=== PATIENT | female | born 1940 | race Caucasian/White ===

== ENCOUNTER → 2016-08-09 | Outpatient (CLI) | payer OTHER | END | disposition home or self-care (01) | LOC: C.LABBC 10:45 | PROVIDERS: ATTEND Physician Assistant | DX: R05 Cough (principal) ==

== ENCOUNTER → 2016-09-09 | Outpatient (CLI) | payer OTHER ==
[2016-09-09 13:35] LABS: URINE APPEARANCE TURBID (CLEAR); URINE BILIRUBIN NEG (NEG); URINE COLOR YELLOW; URINE NITRITE POS (NEG); URINE PH 5.5 (4.5-7.5); URINE SPECIFIC GRAVITY 1.015 (1.000-1.030); UROBILINOGEN NEG (NEG)
[2016-09-09 13:45] LABS: MANUAL MICROSCOPIC REQUIRED? NO; REVIEW REQ? NO
== END | disposition home or self-care (01) ==
LOC: C.LABBC 12:16
PROVIDERS: ATTEND Internal Medicine
DX: R39.9 Unspecified symptoms and signs involving the genitourinary system (principal)

== ENCOUNTER → 2017-01-09 | Outpatient (CLI) | payer OTHER | END | disposition home or self-care (01) | LOC: C.MAMM 15:33 | PROVIDERS: ATTEND Internal Medicine | DX: M85.88 Other specified disorders of bone density and structure, other site (principal); M85.851 Other specified disorders of bone density and structure, right thigh; M85.852 Other specified disorders of bone density and structure, left thigh ==

== ENCOUNTER → 2017-01-15 | Outpatient (CLI) | payer OTHER ==
[2017-01-15 10:52] LABS: BASO % 0.7 %; BASO ABS # 0.05 K/uL (0-0.2); COMPLETE YES; EOS % 2.7 %; HEMATOCRIT 39.2 % (37-47); IG% 0.7 %; LYMPH % 19.9 %; LYMPH ABS # 1.33 K/uL (1.2-3.4); MEAN CELL VOLUME 89.1 fL (80-100); MEAN CORPUSCULAR HEMOGLOBIN 31.8 pg (25-34); MEAN CORPUSCULAR HGB CONC 35.7 g/dl (32-36); MEAN PLATELET VOLUME 11.4 fL (7.4-10.4); MONO % 9.1 %; NEUT % 66.9 %; PLATELET COUNT 197 K/uL (130-400); WHITE BLOOD COUNT 6.69 K/uL (4.8-10.8)
[2017-01-15 11:44] LABS: ALB/GLOB RATIO 1.1 (0.9-2); ALKALINE PHOSPHATASE 71 U/L (45-117); ALT/SGPT 30 U/L (12-78); BLOOD UREA NITROGEN 15 mg/dl (7-18); BUN/CREATININE RATIO 21.1 (10-20); CALCIUM 9.1 mg/dl (8.5-10.1); CARBON DIOXIDE 25 mmol/L (21-32); CHLORIDE 111 mmol/L (98-107); CHOLESTEROL 174 mg/dl (0-200); CHOLESTEROL/HDL RATIO 2.2; CREATININE 0.71 mg/dl (0.60-1.20); GLUCOSE 98 mg/dl (70-99); HDL CHOLESTEROL 80 mg/dl; LDL CHOLESTEROL CALCULATED 77 mg/dl; SODIUM 142 mmol/L (136-145); TRIGLYCERIDES 84 mg/dl (0-150); VERY LOW DENSITY LIPOPROT CALC 17 mg/dl
[2017-01-15 11:52] LABS: AST/SGOT 16 U/L (15-37)
== END | disposition home or self-care (01) ==
LOC: C.LABBC 08:36
PROVIDERS: ATTEND Internal Medicine
DX: E78.5 Hyperlipidemia, unspecified (principal); E03.9 Hypothyroidism, unspecified; M85.80 Other specified disorders of bone density and structure, unspecified site

== ENCOUNTER → 2017-05-20 | Outpatient (CLI) | payer OTHER | END | disposition home or self-care (01) | LOC: C.PATHSPEC 16:49 | PROVIDERS: ATTEND Plastic Surgery | DX: L72.0 Epidermal cyst (principal) ==

== ENCOUNTER → 2017-05-22 | Outpatient (CLI) | payer OTHER | END | disposition home or self-care (01) | LOC: C.LABBC 13:05 | PROVIDERS: ATTEND Internal Medicine | DX: R39.9 Unspecified symptoms and signs involving the genitourinary system (principal); A49.8 Other bacterial infections of unspecified site ==

== ENCOUNTER → 2017-06-19 | Outpatient (CLI) | payer OTHER | END | disposition home or self-care (01) | LOC: C.LABBC 14:05 | PROVIDERS: ATTEND Internal Medicine | DX: R39.9 Unspecified symptoms and signs involving the genitourinary system (principal) ==

== ENCOUNTER → 2017-08-12 | Outpatient (CLI) | payer OTHER | END | disposition home or self-care (01) | LOC: C.LABBC 13:47 | PROVIDERS: ATTEND Nurse Practitioner Adult Health | DX: R39.9 Unspecified symptoms and signs involving the genitourinary system (principal) ==

== ENCOUNTER 2023-02-13 08:38 | Inpatient (IN) ==
[2023-02-13 10:02] LABS: Basophils # (auto) 0.06 K/uL (0.00-0.20); Basophils % (auto) 0.7 %; Eosinophils # (auto) 0.04 K/uL (0.00-0.50); Eosinophils % (auto) 0.5 %; Hematocrit (blood only) 43.9 % (37.0-47.0); Hemoglobin 15.4 g/dl (12.0-16.0); Immature Granulocytes # (auto) 0.05 K/uL (0.01-0.20); Immature Granulocytes % (auto) 0.6 %; Lymphocytes # (auto) 0.95 K/uL (1.20-3.40); Lymphocytes % (auto) 11.6 %; Mean Corpuscular Hemoglobin 31.5 pg (25.0-34.0); Mean Corpuscular Hgb Conc 35.1 g/dL (32.0-36.0); Mean Corpuscular Volume 89.8 fL (80.0-100.0); Monocytes # (auto) 0.57 K/uL (0.11-0.59); Neutrophils # (auto) 6.52 K/uL (1.40-6.50); Neutrophils % (auto) 79.6 %; Platelet Count 295 K/uL (130-400); RDW Coefficient of Variation 11.8 % (11.5-14.5); RDW Standard Deviation 38.2 fL (36.4-46.3); Red Blood Count 4.89 M/uL (4.20-5.40); White Blood Count 8.19 K/ul (4.8-10.8)
[2023-02-13 10:07] LABS: Albumin Globulin Ratio 1.6 (0.9-2); Albumin Level 4.7 gm/dl (3.4-5.0); BUN Creatinine Ratio 17.6 (10-20); Bilirubin,Total 0.7 mg/dl (0.2-1.0); Calcium 10.3 mg/dl (8.6-10.3); Creatinine Clr Calc Pharmacy 41.7 ml/min; Est GFR (Non-African American) 64.7 ml/min; Globulin 2.9 gm/dl (2.5-4.0); Magnesium 2.2 mg/dl (1.7-2.4); Potassium 3.8 mmol/L (3.5-5.1); Total Protein 7.6 gm/dl (6.0-8.3)
[2023-02-13 10:13] LABS: Troponin I High Sensitivity 4.8 pg/ml (0-14)
[2023-02-13 10:22] LABS: Thyroid Stimulating Hormone 1.362 uIu/ml (0.300-4.500)
[2023-02-13 10:29] LABS: Partial Thromboplastin Ratio 1.1; Partial Thromboplastin Time 30.5 Seconds (21.0-31.0); Prothrombin Time 10.6 Seconds (9.0-12.0)
--- NOTE | 2023-02-13 10:37 | CT Scan Report ---
CT head/brain wo con CLINICAL HISTORY: 82 years-old Female with AMS. Acutely altered mental status TECHNIQUE: Multiple axial CT images of the head were obtained without contrast. A dose lowering tech nique was utilized adhering to the principles of ALARA. CT DOSE: 547.75 mGy.cm COMPARISON: Brain MRI 12/31/2022 FINDINGS: No acute intracranial hemorrhage, midline shift, intracranial mass, hydrocephalus, territorial ischem ia or abnormal extra-axial collection. Involutional changes with white matter hypodensities suggestiv e of chronic microvascular ischemic disease. Calcifications of the falx cerebri. The calvarium is intact. Prior bilateral lens repair. The paranasal sinuses, mastoid air cells, and m iddle ear cavities are clear. IMPRESSION: 1. No acute intracranial abnormality. 2. Involutional changes with chronic microvascular ischemic disease. ACT 112: Negative or not required by law. The above report was generated using voice recognition software. It may contain grammatical, syntax o r spelling errors. Electronically signed by: Erasmo Calzada M.D. 02/13/2023 10:36 AM
[2023-02-13] MEDS ORDERED: LABETALOL HCL IV 5 MG/ML 20ML IV STA (10:54)
[2023-02-13 10:59] LABS: Adenovirus PCR Not Detected (NotDetected); Bordetella parapertussis PCR Not Detected (NotDetected); Bordetella pertussis PCR Not Detected (NotDetected); Chlamydia pneumoniae PCR Not Detected (NotDetected); Coronavirus 229E PCR Not Detected (NotDetected); Coronavirus CoV-2 (COVID19)PCR Not Detected (NotDetected); Coronavirus HKU1 PCR Not Detected (NotDetected); Coronavirus NL63 PCR Not Detected (NotDetected); Coronavirus OC43PCR Not Detected (NotDetected); Human Metapneumovirus PCR Not Detected (NotDetected); Influenza A PCR Not Detected (NotDetected); Influenza B PCR Not Detected (NotDetected); Mycoplasma pneumoniae PCR Not Detected (NotDetected); Parainfluenza Virus 1 PCR Not Detected (NotDetected); Parainfluenza Virus 2 PCR Not Detected (NotDetected); Parainfluenza Virus 3 PCR Not Detected (NotDetected); Parainfluenza Virus 4 PCR Not Detected (NotDetected); Respiratory Syncytial VirusPCR Not Detected (NotDetected); Rhinovirus/Enterovirus PCR Not Detected (NotDetected)
--- NOTE | 2023-02-13 11:59 | Emergency Department Note ---
Impression & Plan Acute alteration in mental status, Hypertension ED Provider Note CHIEF COMPLAINT: AMS and HTN HISTORY OF PRESENT ILLNESS: This 82 yo female patient presents to the emergency department with c/o 3 episodes of AMS. Pt first presented with an episode of confusion. states he asked her a question and pt spoke "gibberish" he then had her rest. Pt cleared. A few hours later the patient had a similar episode, just stared off into space, not answering a question her had asked. Pt is noted to have HTN, stated she was weaned off of her BP meds over the summer. She stopped completely in October as she was not feeling well on amlodipine and metoprolol. REVIEW OF SYSTEMS: A review of systems was performed with positives and pertinent negatives listed in the history of present illness. 10 systems were reviewed and are otherwise negative. ALLERGIES: see below MEDICATIONS: see below PMH: see below SOCIAL HISTORY: see below DDx: CVA, TIA, seizure, HTN urgency, ACS, sepsis, ICM, ICH among others. PHYSICAL EXAM: Vital signs reviewed. General: Well-appearing 82 year old female, in no significant distress. HEENT: No scleral icterus, PERRLA, neck supple. Atraumatic. Cardiovascular: Regular rate and rhythm, no extra sounds. Pulmonary: Clear to auscultation bilaterally, normal work of breathing. Abdomen: Soft, nontender, nondistended, positive bowel sounds. Musculoskeletal: Atraumatic, no peripheral edema. Neurologic: Patient awake alert and oriented x 3, speech is clear. Intact [id number], negative pronator drift. Skin: Warm, dry, no rash EXTERNAL medical record review: Previous EKG dated March 03, 2018, PCP note dated 01/20/23, Rx fill history EMERGENCY DEPARTMENT COURSE/MDM: This pt was evaluated and appeared to be in no significant distress. Patient was asymptomatic at the time of my evaluation. CT imaging of the head was performed and is negative for acute abnormality. EKG reveals a normal sinus rhythm. Laboratory work is fairly reassuring. Patient's blood pressure was noted to be elevated and she was treated with 10 mg of IV labetalol. It is quite possible that the patient has suffered from TIA vs seizure vs hypertensive urgency. Patient's case was discussed with the hospitalist service who will evaluate the patient for admission and further management. Patient and were made aware of the plan and agreed. MONITORING: An order for cardiac monitoring was placed and the patient is noted to be in a normal sinus rhythm at 65 beats per minute. RADIOLOGY: CT head is negative for intracranial abnl to my review. Otherwise defer to radiology's over read EKG: To my interpretation reveals a normal sinus rhythm at 95 bpm. Low voltage QRS, Nonspecific ST and T wave abnormality. QTc is 424. When compared to previous dated March 03, 2018, PVCs are no longer present. DISPOSITION: Admission Past Med/Surg History Medical History Mild cognitive impairment Displaced fracture of neck of right fifth metacarpal bone Contusion of right knee Arthritis, multiple joint involvement Chronic constipation Hyperlipidemia Nonrheumatic aortic (valve) insufficiency Osteopenia after menopause Hypertension Multifocal PVCs Hypercholesterolemia Hypothyroid Surgical History Hx of tonsillectomy H/O vaginal hysterectomy Family History Son Colorectal cancer Denies family history of Ovarian cancer Prostate cancer Diabetes Myocardial infarction Breast cancer Lung cancer Stroke Social History Smoking Status: Never smoker Tobacco Type: Cigarettes Age Started Using Tobacco: 22; Age Quit Using Tobacco: 52; packs per day: 0.5; Cigarettes Per Day: 6-10; Second Hand Exposure: No; Do You Dip or Chew Tobacco: No; Hx Alcohol Use: No Hx Substance Use: No Preferred Language: Belgian Communication Ability: Effective Visual Impairment: Limited Hearing Ability: Normal Door Builder Required: No Beliefs That Will Affect Care: None marital status: Current Living Situation: Spouse current occupational status: retired How many Children do You have: 3 Feels Safe at Home: Yes Childhood Exposure to Second-Hand Smoke: Yes caffeine: No Dental Care, Regularly: No Physical Activity Frequency: Daily Seatbelt Use: always Sunscreen Use: Yes Assistive Devices: None Allergies Allergies Allergy/AdvReac Type Severity Reaction Status Date / Time sertraline AdvReac Mild jitteriness, Verified 01/21/23 10:01 palpitations Home Meds Home Medications Medication Instructions Recorded Confirmed cholecalciferol (vitamin D3) 25 1,000 unit PO QAM 03/03/18 02/17/23 mcg (1,000 unit) tablet (Vitamin D3) aspirin 81 mg tablet,delayed 81 mg PO DAILY 01/04/19 02/17/23 release cyanocobalamin (vitamin B-12) 1,000 mcg PO DAILY 01/04/19 02/17/23 1,000 mcg tablet (Vitamin B-12) lactobacillus combination no.9 4 4,000 mmu cells PO DAILY 01/18/20 02/17/23 billion cell capsule (Adult 50 Plus Probiotic) famotidine 20 mg tablet (Pepcid) 20 mg PO DAILY 12/11/22 02/17/23 Previous Rx's Medication Instructions Recorded levothyroxine 75 mcg tablet 75 mcg PO DAILY #90 tabs 03/13/22 trazodone 50 mg tablet 75 mg (1.5 x 50 mg) PO HS #60 tabs 01/07/23 levetiracetam 500 mg tablet 500 mg PO BID 30 days #60 tabs 02/15/23 Results & Data (ED) Vital Signs Vital Signs - 24 hr 02/13/23 08:39 02/13/23 08:51 02/13/23 09:04 Temperature 36.9 C Temperature Source Oral Pulse Rate 98 H 94 H Pulse Rate [Right Finger] 91 H Pulse Rhythm Regular Pulse Rhythm [Right Finger] Regular Pulse Strength Normal Pulse Strength [Right Finger] Normal Respiratory Rate 18 18 Respiratory Effort / Characteristics Non-Labored Non-Labored Respiratory Depth Normal Normal Respiratory Pattern Regular Regular Blood Pressure 185/79 H Blood Pressure [Right Arm] 177/126 H Blood Pressure Mean 114 Blood Pressure Mean [Right Arm] 143 Blood Pressure Position Sitting Blood Pressure Position [Right Arm] Lying Pulse Oximetry 94 95 Oxygen Delivery Method Room Air Room Air Sepsis Recent Fever Within 48 Hours No Sepsis New/Unexplained Change in Mental Status No Sepsis Action Taken by Nursing No Action Required 02/13/23 11:02 02/13/23 11:35 02/13/23 12:13 Temperature Temperature Source Pulse Rate 80 Pulse Rate [Right Finger] 74 75 Pulse Rhythm Pulse Rhythm [Right Finger] Regular Regular Pulse Strength Pulse Strength [Right Finger] Normal Normal Respiratory Rate 18 16 Respiratory Effort / Characteristics Non-Labored Non-Labored Respiratory Depth Normal Normal Respiratory Pattern Regular Regular Blood Pressure 160/83 H Blood Pressure [Right Arm] 166/84 H 150/80 H Blood Pressure Mean Blood Pressure Mean [Right Arm] 111 103 Blood Pressure Position Blood Pressure Position [Right Arm] Lying Lying Pulse Oximetry 94 96 Oxygen Delivery Method Room Air Room Air Sepsis Recent Fever Within 48 Hours Sepsis New/Unexplained Change in Mental Status Sepsis Action Taken by Nursing 02/13/23 12:17 02/13/23 13:42 02/13/23 18:16 Temperature Temperature Source Pulse Rate 75 72 Pulse Rate [Right Finger] Pulse Rhythm Pulse Rhythm [Right Finger] Pulse Strength Pulse Strength [Right Finger] Respiratory Rate Respiratory Effort / Characteristics Respiratory Depth Respiratory Pattern Blood Pressure 167/85 H Blood Pressure [Right Arm] Blood Pressure Mean Blood Pressure Mean [Right Arm] Blood Pressure Position Blood Pressure Position [Right Arm] Pulse Oximetry Oxygen Delivery Method Room Air Sepsis Recent Fever Within 48 Hours Sepsis New/Unexplained Change in Mental Status Sepsis Action Taken by [facility] Medications Current Medication List: was personally reviewed by me Laboratory Data Attestation: I reviewed the patient's lab results. 02/15/23 05:56 02/15/23 05:56 Lab Results 02/13/23 02/13/23 02/13/23 Range/Units 08:53 09:57 13:51 WBC 8.19 (4.8-10.8) K/ul RBC 4.89 (4.20-5.40) M/uL Hgb 15.4 (12.0-16.0) g/dl Hct 43.9 (37.0-47.0) % MCV 89.8 (80.0-100.0) fL MCH 31.5 (25.0-34.0) pg MCHC 35.1 (32.0-36.0) g/dL RDW Std Deviation 38.2 (36.4-46.3) fL RDW Coeff of Nely 11.8 (11.5-14.5) % Plt Count 295 (130-400) K/uL MPV 10.0 (9.4-12.4) fL Immature Gran % (Auto) 0.6 % Neut % (Auto) 79.6 % Lymph % (Auto) 11.6 % [place] % (Auto) 7.0 % Eos % (Auto) 0.5 % Baso % (Auto) 0.7 % Neut # (Auto) 6.52 H (1.40-6.50) K/uL Lymph # (Auto) 0.95 L (1.20-3.40) K/uL [place] # (Auto) 0.57 (0.11-0.59) K/uL Eos # (Auto) 0.04 (0.00-0.50) K/uL Baso # (Auto) 0.06 (0.00-0.20) K/uL Immature Gran # (Auto) 0.05 (0.01-0.20) K/uL PT 10.6 (9.0-12.0) Seconds INR 1.0 (0.9-1.1) APTT 30.5 (21.0-31.0) Seconds PTT Ratio 1.1 Sodium 139 (136-145) mmol/L Potassium 3.8 (3.5-5.1) mmol/L Chloride 107 (98-107) mmol/L Carbon Dioxide 23 (21-32) mmol/L Anion Gap 9 (3-11) BUN 15 (6-23) mg/dl Creatinine 0.85 (0.6-1.2) mg/dl Est Cr Clr Drug Dosing 41.7 ml/min Est GFR ( Amer) 75.0 ml/min Est GFR (Non-Af Amer) 64.7 ml/min BUN/Creatinine Ratio 17.6 (10-20) Glucose 117 H (70-99(Fasting)) mg/dl Calcium 10.3 (8.6-10.3) mg/dl Magnesium 2.2 (1.7-2.4) mg/dl Total Bilirubin 0.7 (0.2-1.0) mg/dl AST 19 (13-39) U/L ALT 33 (7-52) U/L Alkaline Phosphatase 62 (34-104) U/L Troponin I High Sens 4.8 (0-14) pg/ml Total Protein 7.6 (6.0-8.3) gm/dl Albumin 4.7 (3.4-5.0) gm/dl Globulin 2.9 (2.5-4.0) gm/dl Albumin/Globulin Ratio 1.6 (0.9-2) Vitamin B12 Cancelled TSH 1.362 (0.300-4.500) uIu/ml Urine Color Yellow Urine Appearance Clear (Clear) Urine pH 8.0 H (4.5-7.5) Ur Specific [place] 1.009 (1.000-1.030) Urine Protein Negative (Negative) Urine Glucose (UA) Negative (Negative) Urine Ketones Negative (Negative) Urine Blood Negative (Negative) Urine Nitrite Negative (Negative) Urine Bilirubin Negative (Negative) Urine Urobilinogen Negative (Negative) Ur Leukocyte Esterase Negative (Negative) POC Ur Test Adenovirus (PCR) Not Detected (NotDetected) B. pertussis DNA (PCR) Not Detected (NotDetected) B.parapertussis DNA PCR Not Detected (NotDetected) C. pneumoniae DNA (PCR) Not Detected (NotDetected) Coronavirus OC43 (PCR) Not Detected (NotDetected) Coronavirus HKU1 (PCR) Not Detected (NotDetected) Coronavirus 229E (PCR) Not Detected (NotDetected) SARS-CoV-2 (PCR) Not Detected (NotDetected) Coronavirus NL63 (PCR) Not Detected (NotDetected) Human Metapneumovir PCR Not Detected (NotDetected) Influenza Type A (PCR) Not Detected (NotDetected) Influenza Type B (PCR) Not Detected (NotDetected) M. pneumoniae (PCR) Not Detected (NotDetected) Parainfluenza 1 (PCR) Not Detected (NotDetected) Parainfluenza 2 (PCR) Not Detected (NotDetected) Parainfluenza 3 (PCR) Not Detected (NotDetected) Parainfluenza 4 (PCR) Not Detected (NotDetected) RSV (PCR) Not Detected (NotDetected) Entero/Rhino (PCR) Not Detected (NotDetected) Miscellaneous Test REPORT 02/13/23 Range/Units 15:00 WBC (4.8-10.8) K/ul RBC (4.20-5.40) M/uL Hgb (12.0-16.0) g/dl Hct (37.0-47.0) % MCV (80.0-100.0) fL MCH (25.0-34.0) pg MCHC (32.0-36.0) g/dL RDW Std Deviation (36.4-46.3) fL RDW Coeff of Nely (11.5-14.5) % Plt Count (130-400) K/uL MPV (9.4-12.4) fL Immature Gran % (Auto) % Neut % (Auto) % Lymph % (Auto) % [place] % (Auto) % Eos % (Auto) % Baso % (Auto) % Neut # (Auto) (1.40-6.50) K/uL Lymph # (Auto) (1.20-3.40) K/uL [place] # (Auto) (0.11-0.59) K/uL Eos # (Auto) (0.00-0.50) K/uL Baso # (Auto) (0.00-0.20) K/uL Immature Gran # (Auto) (0.01-0.20) K/uL PT (9.0-12.0) Seconds INR (0.9-1.1) APTT (21.0-31.0) Seconds PTT Ratio Sodium (136-145) mmol/L Potassium (3.5-5.1) mmol/L Chloride (98-107) mmol/L Carbon Dioxide (21-32) mmol/L Anion Gap (3-11) BUN (6-23) mg/dl Creatinine (0.6-1.2) mg/dl Est Cr Clr Drug Dosing ml/min Est GFR ( Amer) ml/min Est GFR (Non-Af Amer) ml/min BUN/Creatinine Ratio (10-20) Glucose (70-99(Fasting)) mg/dl Calcium (8.6-10.3) mg/dl Magnesium (1.7-2.4) mg/dl Total Bilirubin (0.2-1.0) mg/dl AST (13-39) U/L ALT (7-52) U/L Alkaline Phosphatase (34-104) U/L Troponin I High Sens (0-14) pg/ml Total Protein (6.0-8.3) gm/dl Albumin (3.4-5.0) gm/dl Globulin (2.5-4.0) gm/dl Albumin/Globulin Ratio (0.9-2) Vitamin B12 TSH (0.300-4.500) uIu/ml Urine Color Urine Appearance (Clear) Urine pH (4.5-7.5) Ur Specific [place] (1.000-1.030) Urine Protein (Negative) Urine Glucose (UA) (Negative) Urine Ketones (Negative) Urine Blood (Negative) Urine Nitrite (Negative) Urine Bilirubin (Negative) Urine Urobilinogen (Negative) Ur Leukocyte Esterase (Negative) POC Ur Test Cancelled Adenovirus (PCR) (NotDetected) B. pertussis DNA (PCR) (NotDetected) B.parapertussis DNA PCR (NotDetected) C. pneumoniae DNA (PCR) (NotDetected) Coronavirus OC43 (PCR) (NotDetected) Coronavirus HKU1 (PCR) (NotDetected) Coronavirus 229E (PCR) (NotDetected) SARS-CoV-2 (PCR) (NotDetected) Coronavirus NL63 (PCR) (NotDetected) Human Metapneumovir PCR (NotDetected) Influenza Type A (PCR) (NotDetected) Influenza Type B (PCR) (NotDetected) M. pneumoniae (PCR) (NotDetected) Parainfluenza 1 (PCR) (NotDetected) Parainfluenza 2 (PCR) (NotDetected) Parainfluenza 3 (PCR) (NotDetected) Parainfluenza 4 (PCR) (NotDetected) RSV (PCR) (NotDetected) Entero/Rhino (PCR) (NotDetected) Miscellaneous Test Administered Medications Discontinued Medications Aspirin (Aspirin 81 Mg Ectab) 81 mg PO DAILY [facility] Stop: 03/16/23 08:59 Last Admin: 02/15/23 07:41 Dose: 81 mg Documented By: Admin: 02/14/23 07:53 Dose: 81 mg Documented By: FERNIE Famotidine (Famotidine 20 Mg Tab) 20 mg PO DAILY [facility] Stop: 03/16/23 08:59 Last Admin: 02/15/23 07:42 Dose: 20 mg Documented By: Admin: 02/14/23 07:53 Dose: 20 mg Documented By: FERNIE Ioversol (Optiray 320 500ml) 113 ml IV ONCE ONE Stop: 02/14/23 16:05 Last Admin: 02/14/23 16:06 Dose: 113 ml Documented By: PARESH Labetalol HCl (Labetalol Hcl Iv 5 Mg/Ml 20ml) 10 mg IV NOW STA Stop: 02/13/23 10:55 Last Admin: 02/13/23 11:02 Dose: 10 mg Documented By: RUFINO Co-signed By: MAN Levetiracetam (Levetiracetam 500 Mg Tab) 500 mg PO BID [facility] Stop: 03/16/23 13:49 Last Admin: 02/15/23 07:41 Dose: 500 mg Documented By: Admin: 02/14/23 22:07 Dose: 500 mg Documented By: Admin: 02/14/23 15:06 Dose: 500 mg Documented By: FERNIE Levothyroxine Sodium (Levothyroxine Sodium 75 Mcg Tablet) 75 mcg PO DAILYBB KATHRYN Stop: 03/16/23 06:29 Last Admin: 02/15/23 05:51 Dose: 75 mcg Documented By: Admin: 02/14/23 06:23 Dose: 75 mcg Documented By: ANITA Trazodone HCl (Trazodone Hcl 50 Mg Tab) 75 mg PO HS KATHRYN Stop: 03/15/23 20:59 Last Admin: 02/14/23 20:58 Dose: 75 mg Documented By: Admin: 02/13/23 22:09 Dose: 75 mg Documented By: ANITA Imaging Data Radiologist's Impression: Head CT 02/13/23 09:44 CT head/brain wo con CLINICAL HISTORY: 82 years-old Female with AMS. Acutely altered mental status TECHNIQUE: Multiple axial CT images of the head were obtained without contrast. A dose lowering technique was utilized adhering to the principles of ALARA. CT DOSE: 547.75 mGy.cm COMPARISON: Brain MRI 12/31/2022 FINDINGS: No acute intracranial hemorrhage, midline shift, intracranial mass, hydrocephalus, territorial ischemia or abnormal extra-axial collection. Involutional changes with white matter hypodensities suggestive of chronic microvascular ischemic disease. Calcifications of the falx cerebri. The calvarium is intact. Prior bilateral lens repair. The paranasal sinuses, mastoid air cells, and middle ear cavities are clear. IMPRESSION: 1. No acute intracranial abnormality. 2. Involutional changes with chronic microvascular ischemic disease. ACT 112: Negative or not required by law. The above report was generated using voice recognition software. It may contain grammatical, syntax or spelling errors. Electronically signed by: Erasmo Calzada M.D. 02/13/2023 10:36 AM Discharge Plan Visit Data Chief Complaint: Arrhythmia/Palpitations Stated Complaint: HEART RATE ELEVATED, DISORIENTATION, SHAKINESS ED Provider: Chelsea Rosado Discharge Problem: Acute alteration in mental status, Hypertension Patient Disposition: Admitted As Inpatient Condition: Good Discharge Instructions Interventions: ED Discharge Assessment Last Done: 02/13/23 18:16 Discharge Problem: Hypertension Qualifiers: Hypertension type: primary hypertension Qualified Code(s): I10 - Essential (primary) hypertension
--- NOTE | 2023-02-13 13:06 | Electrocardiogram Report ---
Test Reason : Blood Pressure : / mmHG Vent. Rate : 095 BPM Atrial Rate : 095 BPM P-R Int : 198 ms QRS Dur : 078 ms QT Int : 338 ms P-R-T Axes : 060 022 022 degrees QTc Int : 424 ms Normal sinus rhythm Low voltage QRS Nonspecific ST and T wave abnormality Abnormal ECG When compared with ECG of 03-MAR-2018 12:01, Premature ventricular complexes are no longer Present Nonspecific T wave abnormality now evident in Anterior leads Confirmed by Claudio Ace ([id number]) on 02/13/2023 1:05:40 PM Referred By: REFERRED SELF Confirmed By:Claudio Ace
[2023-02-13 15:15] LABS: Appearance Urine Clear (Clear); Bilirubin Urine Negative (Negative); Blood Urine Negative (Negative); Color Urine Yellow; Glucose Urine UA Negative (Negative); Ketones Urine Negative (Negative); Leukocyte Esterase Urine Negative (Negative); Nitrite Urine Negative (Negative); Protein Urine Negative (Negative); Specific Gravity Urine 1.009 (1.000-1.030); Urobilinogen Urine Negative (Negative)
--- NOTE | 2023-02-13 15:47 | History & Physical Report ---
Date of Service February 13, 2023 Assessment & Plan (1) Episodic confusion: Plan: Pt is a 82 yo female with PMH of constipation, mild cognitive impairment, PVCs, HLD, aortic insufficiency, osteopenia, HTN, and hypothyroidism presenting to the hospital due to heart palpitations and episodes of confusion. Episodic confusion - hx of mild cognitive impairment; lab work unremarkable - CVA vs. TIA vs. HTN urgency/emergency - CT head upon admission neg; recent MRI 01/02/2023 WNL but this was performed prior her confusion episodes - ordered MRI to r/o CVA; currently ordered labetalol for SBP >220, if MRI negative, will decrease SBP goal <180 - would recommend addition of medication (ARB, CCB, etc) for chronic HTN management if BP remains elevated - unsure if pt's symptoms caused by elevated BP vs. increased PVC burden vs. ?- pt may benefit from restarting metoprolol as her weakness symptoms did not improve much since stopping it Leg weakness/gait instability - suspect deconditioning vs. neurologic disorder (fam hx of CMT) vs. ? - outpatient EMG pending per last PCP note - PT/OT consulted HTN - per pt, no hx of HTN at home; pt states her BP are usually ~120s/80s - s/p labetalol 10 mg in ER; BP management as above Hypothyroidism - TSH 1.362 upon admission - continue levothyroxine 75 mcg daily Diet: heart healthy DVT ppx: SCDs ordered, ambulation as able; if admission prolonged- would add chemoppx Code: full Dispo: admit to med/surg with tele (2) Leg weakness: (3) Mild cognitive impairment: (4) Hyperlipidemia: (5) Hypertension: (6) Hypothyroid: (7) Multifocal PVCs: History of Present Illness Chief Complaint: heart palpitations, episodes of confusion Primary Care Provider: Danna Rojas MD Pt is a 82 yo female with PMH of constipation, mild cognitive impairment, PVCs, HLD, aortic insufficiency, osteopenia, HTN, and hypothyroidism presenting to the hospital due to heart palpitations and episodes of confusion. Pt states she came to the hospital due to episodes of confusion at home. She had two episodes yesterday (one midday and one prior to bed) where she did not respond to her 's question and almost fell due to weakness/clumsiness. She endorses she has a history of lower extremity weakness for the past few months for which she has been attending PT. She feels that her left side is weaker than her right. She denies recent visual changes (other than a change in her prescription) and headaches- but does endorse a sensation of head "fullness." She also endorses a sensation that she has something stuck in her throat and it seems to change her voice- this began ~1 week ago. She has a fam hx of Uilixfe-Gzxqk-Bqhgo (her son and grandson), but she has had EMGs performed which were WNL per the pt. She has also been referred to neurology. Pt follows with Dr. Dee outpatient and was recently seen by him 12/26/2022. She has a hx of PVCs which was managed well with a low dose of metoprolol succinate 25 mg. She saw her PCP 01/20/2023 who then stopped her metoprolol due to morning weakness. Pt has not noticed any change in her level of weakness since stopping her metoprolol. She also has a hx of vestibular dysfunction/leg weakness for which she was seeing PT. She also stopped taking benadryl and atorvastatin which helped her cognition and sleep. Pt recently had a brain MRI 12/31/2022 which was WNL. This is due to her prior diagnosis of mild cognitive impairment by a neuropsych doctor. She also received her COVID shot 02/05/2023. In the ED, lab work showed CBC WNL, electrolytes WNL, and TSH of 1.362. UA w/o signs of infection. Respiratory biofire was negative. EKG WNL. Head CT was neg except for chronic microvascular ischemic disease. Pt was given 10 mg labetalol due to HTN. Allergies Allergy/AdvReac Type Severity Reaction Status Date / Time sertraline AdvReac Mild jitteriness, Verified 01/21/23 10:01 palpitations Home Medications Medication Instructions Recorded Confirmed Type cholecalciferol (vitamin D3) 25 1,000 unit PO QAM 03/03/18 02/13/23 History mcg (1,000 unit) tablet (Vitamin D3) aspirin 81 mg tablet,delayed 81 mg PO DAILY 01/04/19 02/13/23 History release cyanocobalamin (vitamin B-12) 1,000 mcg PO DAILY 01/04/19 02/13/23 History 1,000 mcg tablet (Vitamin B-12) lactobacillus combination no.9 4 4,000 mmu cells PO DAILY 01/18/20 02/13/23 History billion cell capsule (Adult 50 Plus Probiotic) levothyroxine 75 mcg tablet 75 mcg PO DAILY #90 tabs 03/13/22 02/13/23 Rx famotidine 20 mg tablet (Pepcid) 20 mg PO DAILY 12/11/22 02/13/23 History trazodone 50 mg tablet 75 mg (1.5 x 50 mg) PO HS #60 tabs 01/07/23 02/13/23 Rx Past Med/Surg History Medical History Arthritis, multiple joint involvement Chronic constipation Contusion of right knee Displaced fracture of neck of right fifth metacarpal bone Hypercholesterolemia Hyperlipidemia Hypertension Hypothyroid Mild cognitive impairment Multifocal PVCs Nonrheumatic aortic (valve) insufficiency Osteopenia after menopause Surgical History H/O vaginal hysterectomy Hx of tonsillectomy Family History Son Colorectal cancer Denies family history of Ovarian cancer Prostate cancer Diabetes Myocardial infarction Breast cancer Lung cancer Stroke Social History Smoking Status: Never smoker Tobacco Type: Cigarettes Age Started Using Tobacco: 22; Age Quit Using Tobacco: 52; packs per day: 0.5; Cigarettes Per Day: 6-10; Second Hand Exposure: No; Do You Dip or Chew Tobacco: No; Tobacco Cessation Education Requested by Patient: No Hx Alcohol Use: No Hx Substance Use: No Preferred Language: Maltese Communication Ability: Effective Visual Impairment: Limited Hearing Ability: Normal 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 Eyes: PERRLA. Conjunctivae normal. ENMT: TM normal with right ear canal blocked by cerumen. Nonerythematous oropharynx with no lesions. Respiratory: CTA bilaterally. Non labored breathing. No rhonchi, wheezing, or crackles. Cardiovascular: Regular rate and rhythm with occasional PVCs. No murmurs noted. No LE edema. Gastrointestinal (Abdomen): Nontender, +BS. No masses noted. Musculoskeletal: Distortions of bilateral feet noted including significant hallux valgus. Skin: No rashes or skin lesions noted. Neurologic: Sensation grossly intact. No FND appreciated. CN II-XII grossly intact. 4/5 strength in bilateral UE and LE. State Inspector strength equal bilaterally. Psychiatric: Speech of normal pace and content. Mood and affect congruent. Results & Data Results & Data Vital Signs (Past 12 Hours) Vital Signs Temp Pulse Pulse Resp BP BP Pulse Ox 02/13/23 13:42 72 02/13/23 12:13 75 16 150/80 H 96 02/13/23 11:35 74 18 166/84 H 94 02/13/23 11:02 80 160/83 H 02/13/23 09:04 91 H 18 177/126 H 95 02/13/23 08:51 94 H 02/13/23 08:39 36.9 C 98 H 18 185/79 H 94 O2 Del Method 02/13/23 13:42 02/13/23 12:13 Room Air 02/13/23 11:35 Room Air 02/13/23 11:02 02/13/23 09:04 Room Air 02/13/23 08:51 02/13/23 08:39 Room Air Supervising Physician Co-Signing Physician Notes Patient seen and examined, chart reviewed, case discussed with Tiffany Forman, and I agree with the assessment and plan as above except as otherwise noted Labs and images reviewed Tiffanie is an 82-year-old female who presents with intermittent confusion. DDx include CVA/TIA/hypertensive urgency/partial seizures. MRI is pending on admission. CT head negative. Labetalol for SBP greater than 220 until stroke ruled out, if no CVA is noted then decreased control parameters to less than 180. At bedside assessment she reports that she has had 2 episodes of staring a nd unresponsiveness which she does not remember. She has some chronic strength deficits but does not feel that these have changed very much. Confusion and amnestic episodes without collapse or tremor are potentially concerning for partial seizure. Agree with assessment and work-up as above Resident Activity Tracking Resident Involvement: Resident Care Provided Care Provided: Adult Hospital Medicine (5) Hypertension Hypertension type: unspecified Qualified Code(s): I10 - Essential (primary) hypertension
[2023-02-13] MEDS ORDERED: POLYETHYLENE (MIRALAX) 17 GM PACK PO PRN (18:45)
[2023-02-13] MEDS ORDERED: LABETALOL HCL IV 5 MG/ML 20ML IV PRN (18:45)
--- NOTE | 2023-02-13 19:18 | Magnetic Resonance Report ---
MRI OF THE BRAIN WITHOUT IV CONTRAST CLINICAL HISTORY: Change in mental status. Episodic confusion. COMPARISON STUDY: CT of the brain dated 02/13/2023. MRI of the brain dated 12/31/2022. TECHNIQUE: MRI of the brain was performed utilizing various T1 and T2-weighted sequences in the axial , sagittal, and coronal planes. IV contrast was not administered for this examination. FINDINGS: Brain parenchyma: There is age-related involutional change noting moderate subcortical and periventri cular microangiopathic disease. There is increased signal within the medial temporal lobe cortex and white matter, best seen on coronal FLAIR image #12. There is no hemorrhage or mass effect. There is n o restricted diffusion to suggest acute ischemia. Skinner-white matter differentiation is preserved. No extra-axial fluid collection is seen. The cerebellar tonsils are normal in configuration. Ventricles, sulci, and cisterns: Prominent secondary to involutional change. Pituitary and sella: Unremarkable. Intracranial vasculature: Normal flow voids are maintained at the skull base. Orbits: The bony orbits are grossly intact. Orbital contents are normal in appearance noting bilatera l ocular lens implants. Sinuses and mastoids: The paranasal sinuses are clear. There is a trace right mastoid effusion. Calvarium: Unremarkable. Cervical cord: Partially visualized cervical spinal cord is normal in morphology and signal intensity . IMPRESSION: 1. No acute intracranial abnormality is identified. 2. There is increased signal within the medial temporal lobe cortex and white matter, best seen on th e coronal FLAIR imaging. This has been present dating back to 2019 and may simply represent chronic m icroangiopathic/ischemic change. Given the location, this could also potentially be seen in the setti ng of seizure activity. This is of indeterminant, if any, clinical significance. Correlation will be required. ACT 112: Negative or not required by law. Electronically signed by: Jack Rose M.D. 02/13/2023 7:16 PM
[2023-02-13] MEDS: traZODone HCL 50 MG TAB PO SCH (22:09)
[2023-02-14] MEDS: LEVOTHYROXINE SODIUM 75 MCG TABLET PO SCH (06:23)
[2023-02-14 06:39] LABS: Hematocrit (blood only) 42.4 % (37.0-47.0); Hemoglobin 14.4 g/dl (12.0-16.0); Mean Corpuscular Hemoglobin 30.8 pg (25.0-34.0); Mean Corpuscular Volume 90.6 fL (80.0-100.0); Mean Platelet Volume 10.2 fL (9.4-12.4); Platelet Count 250 K/uL (130-400); RDW Coefficient of Variation 11.9 % (11.5-14.5); RDW Standard Deviation 39.2 fL (36.4-46.3); Red Blood Count 4.68 M/uL (4.20-5.40); White Blood Count 6.84 K/ul (4.8-10.8)
[2023-02-14 07:05] LABS: BUN Creatinine Ratio 22.1 (10-20); Calcium 9.3 mg/dl (8.6-10.3); Creatinine Clr Calc Pharmacy 46.1 ml/min; Est GFR (African American) 84.5 ml/min; Est GFR (Non-African American) 72.9 ml/min; Magnesium 2.2 mg/dl (1.7-2.4); Potassium 4.1 mmol/L (3.5-5.1)
[2023-02-14] MEDS: ASPIRIN 81 MG ECTAB PO SCH (07:53)
[2023-02-14] MEDS: FAMOTIDINE 20 MG TAB PO SCH (07:53)
--- NOTE | 2023-02-14 12:32 | Electroencephalogram ---
EEG Procedure Note Date of Service February 14, 2023 Start / End Times Start Time: 1137 End Time: [address] Aceves History 82-year-old with history of abnormal MRI of the brain with increased signal in the right medial temporal lobe (chronic). Home Medication List Medication Instructions Recorded Confirmed Type cholecalciferol (vitamin D3) 25 1,000 unit PO QAM 03/03/18 02/13/23 History mcg (1,000 unit) tablet (Vitamin D3) aspirin 81 mg tablet,delayed 81 mg PO DAILY 01/04/19 02/13/23 History release cyanocobalamin (vitamin B-12) 1,000 mcg PO DAILY 01/04/19 02/13/23 History 1,000 mcg tablet (Vitamin B-12) lactobacillus combination no.9 4 4,000 mmu cells PO DAILY 01/18/20 02/13/23 History billion cell capsule (Adult 50 Plus Probiotic) levothyroxine 75 mcg tablet 75 mcg PO DAILY #90 tabs 03/13/22 02/13/23 Rx famotidine 20 mg tablet (Pepcid) 20 mg PO DAILY 12/11/22 02/13/23 History trazodone 50 mg tablet 75 mg (1.5 x 50 mg) PO HS #60 tabs 01/07/23 02/13/23 Rx Inpatient Medication List Aspirin (Aspirin 81 Mg Ectab) 81 mg PO DAILY KATHRYN Stop: 03/16/23 08:59 Last Admin: 02/14/23 07:53 Dose: 81 mg Documented By: FERNIE Famotidine (Famotidine 20 Mg Tab) 20 mg PO DAILY KATHRYN Stop: 03/16/23 08:59 Last Admin: 02/14/23 07:53 Dose: 20 mg Documented By: FERNIE Levothyroxine Sodium (Levothyroxine Sodium 75 Mcg Tablet) 75 mcg PO DAILYBB KATHRYN Stop: 03/16/23 06:29 Last Admin: 02/14/23 06:23 Dose: 75 mcg Documented By: ANITA Trazodone HCl (Trazodone Hcl 50 Mg Tab) 75 mg PO HS KATHRYN Stop: 03/15/23 20:59 Last Admin: 02/13/23 22:09 Dose: 75 mg Documented By: ANITA Discontinued Medications Labetalol HCl (Labetalol Hcl Iv 5 Mg/Ml 20ml) 10 mg IV NOW STA Stop: 02/13/23 10:55 Last Admin: 02/13/23 11:02 Dose: 10 mg Documented By: RUFINO Co-signed By: MAN Description This is a 21 electrode EEG with a single channel dedicated to limited EKG. The electrodes were placed in accordance with the International 10-20 system. Interpretation The predominant background activity consists of a fairly well modulated 10 Hz activity, of up to 40 mV in amplitude,seen symmetrically distributed over the posterior head regions bilaterally. This activity attenuates nicely with eye- opening and other alerting procedures. Photic stimulation was performed and elicited no change in the background activity and no abnormal responses were seen. Hyperventilation was not performed. A minimal amount of muscle and movement artifact activity contaminated the recording and did not hinder interpretation to any significant degree. Throughout the waking portion of the recording, no focal abnormalities, abnormal slow activity, or potentially epileptogenic discharges are seen. The patient entered the drowsy state with no further activation. In summary, this EEG was normal during wakefulness and drowsiness. No focal abnormalities, potentially epileptogenic discharges, or abnormal slow activity were seen. Clinical Correlation The abscence of potentially epileptogenic activity does not exclude a seizure disorder, since interictally, EEGs can be normal. Clinical correlation is required. [facility] EEG Procedure Codes Indication for Procedure (1) Episodic confusion: Neurology Neurology: 42636 EEG include record awake & drowsy
--- NOTE | 2023-02-14 13:31 | Hospitalist Progress Note ---
Date of Service February 14, 2023 Assessment & Plan (1) Episodic confusion: Plan: - hx of mild cognitive impairment; lab work unremarkable - CVA vs. TIA vs. HTN urgency/emergency vs partial seizures - CT head upon admission neg; MRI head -increased signal temporal lobe - EEG WNL Spoke with Dr. Parker, Neurology - recommended Head/neck CTA, loading dose of Keppra 500 mg BID, and outpatient neurology follow up. (2) Leg weakness: Plan: - suspect deconditioning vs. neurologic disorder (fam hx of CMT) vs. ? - has had extensive outpatient workup, outpatient EMG pending per last PCP note - PT/OT consulted - B12, CRP, Sed Rate added to AM labs (3) Hypertension: Plan: -stopped home metoprolol ~ 1 month ago due to weakness. -BP responded well to labetalol and patient did not seem to notice any increase in weakness - Start propranolol BID for HTN and PVCs/rate control (4) Palpitations: Plan: -restarted since she d/c metoprolol - propranolol as above (5) Hypothyroid: Plan: - TSH 1.362 upon admission - continue home levothyroxine 75 mcg daily Plan DVT ppx: SCDs ordered, ambulation as able Dispo - continued stay, possible d/c tomorrow pending CTA and keppra tolerance Admission and Anticipated Discharge Date Admission Date: February 13, 2023 Supervising Physician Co-Signing Physician Notes Attending Attestation & Progress Note: Pt seen/examined, chart reviewed, care plan d/w JUAN Cano. I agree w/ the rodriguez components of her documentation. Patient doing well. No episodes of altered mental status or episodes suggestive of seizure. She is feeling well and wants to go home. Denies any dizziness. Denies weakness of any limb. Reports that prior to her episodes of confusion at home there are no prodromal symptoms. exam - gen - NAD, pleasant face - no droop heart - RRR, s1 s2 lungs - CTA b/l abd - soft NT ND BS+ ext - no edema, pulses 2+ b/l neuro - no tremor; strength 5/5 x 4 exts labs reviewed imaging reviewed EEG reviewed A/P: 1. episodes of altered mental status, repetitive/unusual movements, etc - complex partial seizures?? MRI brain with - "increased signal within the medial temporal lobe cortex and white matter". This MRI finding could be suggestive of seizure. Despite negative EEG I agree with initiation of keppra 500mg BID for possible seizure activity. Watch overnight; she is sensitive to meds - ensure no side effects; ensure no additional events of altered MS. 2. weakness, gait issues - check B12, ESR, CRP, etc. hopefully home tomorrow Gary Aceves MD Subjective 1355 - Patient seen sitting up to chair, present in room. Reports feeling well, with good appetite. Has been up ambulating in the halls. Denies any episode of altered mental status today. Does report that she has been having changes in her vision, double vision, over the last month. Has seen eye doctor for this and is getting new eyeglasses. Does not happen all the time only when staring at objects in the distance for a long time. no other vision changes, denies headaches. Also reports chronic tinnitus, no recent changes. Denies any recent new medications, has been discontinuing multiple medications due to her weakness. denies any chest pain shortness of breath nausea vomiting or diarrhea. reports that Patient has had 3 episodes of altered mental status in the last 3 weeks. Patient does not remember these episodes, just feels like she is sleeping. Happening at various times of the day. The last episode prior to ER visit her face was drooping and speech was slurred. Prior to that other episodes involved repetitive cleaning motions that patient did not realize she was doing. He reports that she becomes more alert quickly but does not remember these events. Tele - NSR 60-70s Review of Systems Review of Systems: All systems reviewed & are unremarkable except as noted in Subjective Physical Exam Constitutional: WD/WN, vitals as above Eyes: PERRL, conjunctivae normal, anicteric sclerae no nystagmus Respiratory: normal respiratory effort, lungs clear to auscultation Cardiovascular: RRR, no murmur, no edema Gastrointestinal (Abdomen): normal bowel sounds, soft, nontender, no hepatosplenomegaly Neurologic: PERRL, EOMI, accommodation nl, no face palsy, no dysarthria CN's II-XI intact bilaterally and awake Speech / Cognition: + abnormal speech B/L arms 5/5 strength. Left leg 5/5 strength. Right leg 5/5 strength. Results & Data Results & Data Vital Signs (Past 12 Hours) Vital Signs Temp Pulse Pulse Resp BP Pulse Ox O2 Del Method 02/14/23 07:54 36.7 C 64 16 148/76 H 96 Room Air 02/14/23 06:00 72 02/14/23 02:14 36.7 C 65 16 110/64 95 Room Air Laboratory Results Laboratory Results - last 24 hr 02/13/23 02/13/23 02/14/23 13:51 15:00 06:03 WBC 6.84 RBC 4.68 Hgb 14.4 Hct 42.4 MCV 90.6 MCH 30.8 MCHC 34.0 RDW Std Deviation 39.2 RDW Coeff of Nely 11.9 Plt Count 250 MPV 10.2 Sodium 138 Potassium 4.1 Chloride 107 Carbon Dioxide 22 Anion Gap 9 BUN 17 Creatinine 0.77 Est Cr Clr Drug Dosing 46.1 Est GFR ( Amer) 84.5 Est GFR (Non-Af Amer) 72.9 BUN/Creatinine Ratio 22.1 H Glucose 88 Calcium 9.3 Magnesium 2.2 Urine Color Yellow Urine Appearance Clear Urine pH 8.0 H Ur Specific [place] 1.009 Urine Protein Negative Urine Glucose (UA) Negative Urine Ketones Negative Urine Blood Negative Urine Nitrite Negative Urine Bilirubin Negative Urine Urobilinogen Negative Ur Leukocyte Esterase Negative POC Ur Test Cancelled Diagnostic Findings Brain MRI 02/13/23 16:50 MRI OF THE BRAIN WITHOUT IV CONTRAST CLINICAL HISTORY: Change in mental status. Episodic confusion. COMPARISON STUDY: CT of the brain dated 02/13/2023. MRI of the brain dated 12/31/2022. TECHNIQUE: MRI of the brain was performed utilizing various T1 and T2-weighted sequences in the axial, sagittal, and coronal planes. IV contrast was not administered for this examination. FINDINGS: Brain parenchyma: There is age-related involutional change noting moderate subcortical and periventricular microangiopathic disease. There is increased signal within the medial temporal lobe cortex and white matter, best seen on coronal FLAIR image #12. There is no hemorrhage or mass effect. There is no restricted diffusion to suggest acute ischemia. Skinner-white matter differentiation is preserved. No extra-axial fluid collection is seen. The cerebellar tonsils are normal in configuration. Ventricles, sulci, and cisterns: Prominent secondary to involutional change. Pituitary and sella: Unremarkable. Intracranial vasculature: Normal flow voids are maintained at the skull base. Orbits: The bony orbits are grossly intact. Orbital contents are normal in appearance noting bilateral ocular lens implants. Sinuses and mastoids: The paranasal sinuses are clear. There is a trace right mastoid effusion. Calvarium: Unremarkable. Cervical cord: Partially visualized cervical spinal cord is normal in morphology and signal intensity. IMPRESSION: 1. No acute intracranial abnormality is identified. 2. There is increased signal within the medial temporal lobe cortex and white matter, best seen on the coronal FLAIR imaging. This has been present dating back to 2019 and may simply represent chronic microangiopathic/ischemic change. Given the location, this could also potentially be seen in the setting of seizure activity. This is of indeterminant, if any, clinical significance. Correlation will be required. ACT 112: Negative or not required by law. Electronically signed by: Jack Rose M.D. 02/13/2023 7:16 PM (3) Hypertension Hypertension type: unspecified Qualified Code(s): I10 - Essential (primary) hypertension
[2023-02-14] MEDS: levETIRAcetam 500 MG TAB PO SCH ×2 (15:06→22:07)
[2023-02-14] MEDS ORDERED: OPTIRAY 320 500ml IV ONE (16:04)
--- NOTE | 2023-02-14 16:27 | CT Scan Report ---
CT ANGIOGRAM OF THE BRAIN; CT ANGIOGRAM OF THE NECK CLINICAL HISTORY: Change in mental status. COMPARISON STUDY: CT and MRI of the brain dated 02/13/2023. TECHNIQUE: Following the IV administration of 113 of Optiray 320, CT angiogram of the head and neck w as performed from the aortic arch to the vertex. Images are reviewed in the axial, sagittal, and efren nal planes. 3-D MIPS images are created and assessed. IV contrast was administered without complicati on. All measurements were calculated based on NASCET criteria. A dose lowering technique was utilize d adhering to the principles of ALARA. CT DOSE: 424.77 mGy.cm FINDINGS: Brain parenchyma: There is age-related involutional change noting moderate to advanced subcortical an d periventricular microangiopathic disease. There is no evidence of hemorrhage, mass effect, or acute territorial ischemia noting angiographic phase technique. There is no evidence of enhancing mass les ion on the angiogram phase images. The ventricles, sulci, and cisterns are normal in configuration. G ray-white matter differentiation is preserved. No extra-axial fluid collection is seen. Thoracic aorta: There is atherosclerotic calcification of the thoracic aorta. Visualized portions of the thoracic aorta are normal in caliber. The aortic arch demonstrates 4-vessel variant anatomy. The left vertebral artery arises directly from the thoracic aorta. Right carotid arterial system: The right common carotid artery is widely patent, as are the right int ernal and external carotid arteries. Mild calcified plaque is noted within the internal carotid arter y. Left carotid arterial system: The left common carotid artery is widely patent, as are the left environmental engineering intern al and external carotid arteries. Calcified plaque is noted in the carotid bulb. Vertebral arteries: The vertebral arteries are widely patent bilaterally including left-sided dominan ce. The right vertebral artery is diminutive. Subclavian arteries: Widely patent bilaterally. Intracranial vasculature: There is atherosclerotic calcification of the cavernous carotid and vertebr al arteries The internal carotid arteries are patent at the skull base, as are the anterior and middl e cerebral arteries bilaterally. The vertebrobasilar system and posterior cerebral arteries are widel y patent. The left vertebral artery is dominant. The intracranial right vertebral artery is diminutiv e. There is a large right posterior communicating artery. There is no aneurysm, high-grade stenosis, or focal vessel cut off seen throughout the intracranial circulation. Jugular veins: Patent bilaterally. Dural sinuses: Patent. Lung apices: Moderate emphysema is changes noted at the apices. There are scattered foci of mucus plu gging. Visualized upper lobe lung parenchyma is otherwise clear. Soft tissues: The visualized pharyngeal soft tissues are normal in appearance noting angiographic pha se technique. The oropharyngeal airway appears widely patent. The thyroid gland is atrophic. The sali vary glands are normal in appearance. No cervical lymphadenopathy is seen. Skeletal structures: The skeletal structures are osteopenic. The calvarium appears intact. The cervic al spine is maintained noting multilevel spondylosis. Orbits: The bony orbits are intact. Orbital contents are normal as visualized noting bilateral ocular lens implant. Sinuses and mastoids: The paranasal sinuses are clear. The mastoid air cells are well pneumatized. IMPRESSION: 1. There is no evidence of hemorrhage, mass effect, or acute territorial ischemia noting angiographic phase technique. 2. Unremarkable CT angiogram of the brain. 3. Unremarkable CT angiogram of the neck. 4. Mild emphysema. ACT 112: Negative or not required by law. Electronically signed by: Jack Rose M.D. 02/14/2023 4:25 PM
[2023-02-14] MEDS: traZODone HCL 50 MG TAB PO SCH (20:58)
[2023-02-15] MEDS: LEVOTHYROXINE SODIUM 75 MCG TABLET PO SCH (05:51)
[2023-02-15 06:38] LABS: Basophils # (auto) 0.08 K/uL (0.00-0.20); Basophils % (auto) 1.1 %; Eosinophils # (auto) 0.15 K/uL (0.00-0.50); Hematocrit (blood only) 38.3 % (37.0-47.0); Hemoglobin 13.7 g/dl (12.0-16.0); Immature Granulocytes # (auto) 0.07 K/uL (0.01-0.20); Lymphocytes # (auto) 1.65 K/uL (1.20-3.40); Lymphocytes % (auto) 22.5 %; Mean Corpuscular Hemoglobin 32.1 pg (25.0-34.0); Mean Corpuscular Hgb Conc 35.8 g/dL (32.0-36.0); Mean Corpuscular Volume 89.7 fL (80.0-100.0); Mean Platelet Volume 9.8 fL (9.4-12.4); Monocytes # (auto) 0.86 K/uL (0.11-0.59); Monocytes % (auto) 11.7 %; Neutrophils # (auto) 4.51 K/uL (1.40-6.50); Neutrophils % (auto) 61.7 %; Platelet Count 250 K/uL (130-400); RDW Standard Deviation 38.9 fL (36.4-46.3); Red Blood Count 4.27 M/uL (4.20-5.40); White Blood Count 7.32 K/ul (4.8-10.8)
[2023-02-15 06:55] LABS: Anion Gap 7 (3-11); BUN Creatinine Ratio 24.4 (10-20); Blood Urea Nitrogen 21 mg/dl (6-23); C Reactive Protein < 0.50 mg/dl (0-0.5); Calcium 9.1 mg/dl (8.6-10.3); Carbon Dioxide 24 mmol/L (21-32); Chloride 108 mmol/L (98-107); Creatinine Clr Calc Pharmacy 41.3 ml/min; Est GFR (African American) 73.9 ml/min; Est GFR (Non-African American) 63.8 ml/min; Glucose 92 mg/dl (70-99(Fasting)); Sodium 139 mmol/L (136-145)
[2023-02-15] MEDS: levETIRAcetam 500 MG TAB PO SCH (07:41)
[2023-02-15] MEDS: ASPIRIN 81 MG ECTAB PO SCH (07:41)
[2023-02-15] MEDS: FAMOTIDINE 20 MG TAB PO SCH (07:42)
--- NOTE | 2023-02-15 10:09 | Discharge Summary ---
Discharge Summary Date of Service February 15, 2023 Notes For Next Care Provider - B12 level pending on Discharge, consider IM supplementation if needed - we discussed propanolol for rate and HTN control but it was never started, BPs WNL day of discharge. Asked her to record BPs at home prior to outpatient follow up Medication Changes From Visit - Added Keppra 500 mg BID Admission HPI Per Admitting Provider Pt is a 82 yo female with PMH of constipation, mild cognitive impairment, PVCs, HLD, aortic insufficiency, osteopenia, HTN, and hypothyroidism presenting to the hospital due to heart palpitations and episodes of confusion. Pt states she came to the hospital due to episodes of confusion at home. She had two episodes yesterday (one midday and one prior to bed) where she did not respond to her 's question and almost fell due to weakness/clumsiness. She endorses she has a history of lower extremity weakness for the past few months for which she has been attending PT. She feels that her left side is weaker than her right. She denies recent visual changes (other than a change in her prescription) and headaches- but does endorse a sensation of head "fullness." She also endorses a sensation that she has something stuck in her throat and it seems to change her voice- this began ~1 week ago. She has a fam hx of Hjvzdmj-Kzqrn-Qmred (her son and grandson), but she has had EMGs performed which were WNL per the pt. She has also been referred to neurology. Pt follows with Dr. Dee outpatient and was recently seen by him 12/26/2022. She has a hx of PVCs which was managed well with a low dose of metoprolol succinate 25 mg. She saw her PCP 01/20/2023 who then stopped her metoprolol due to morning weakness. Pt has not noticed any change in her level of weakness since stopping her metoprolol. She also has a hx of vestibular dysfunction/leg weakness for which she was seeing PT. She also stopped taking benadryl and atorvastatin which helped her cognition and sleep. Pt recently had a brain MRI 12/31/2022 which was WNL. This is due to her prior diagnosis of mild cognitive impairment by a neuropsych doctor. She also received her COVID shot 02/05/2023. In the ED, lab work showed CBC WNL, electrolytes WNL, and TSH of 1.362. UA w/o signs of infection. Respiratory biofire was negative. EKG WNL. Head CT was neg except for chronic microvascular ischemic disease. Pt was given 10 mg labetalol due to HTN. Principal Dx & Hospital Course #1 = Principal Diagnosis (1) Episodic confusion: - hx of mild cognitive impairment; lab work unremarkable - CVA vs. TIA vs. HTN urgency/emergency vs partial seizures - CT head upon admission neg; MRI head -increased signal temporal lobe - EEG WNL Spoke with Dr. Parker, Neurology - recommended Head/neck CTA, loading dose of Keppra 500 mg BID, and outpatient neurology follow up. (2) Leg weakness: - suspect deconditioning vs. neurologic disorder (fam hx of CMT) vs. ? - has had extensive outpatient workup, outpatient EMG pending per last PCP note - PT/OT consulted, paper rx given to continue PT/OT in [place] - CRP, Sed Rate- normal - B12 level pending at discharge but does take PO supplementation at home (3) Hypertension: -stopped home metoprolol ~ 1 month ago due to weakness. -BP responded well to labetalol and patient did not seem to notice any increase in weakness - Discussed propanolol but was never started during stay (4) Palpitations: -restarted since she d/c metoprolol (5) Hypothyroid: - TSH 1.362 upon admission - continue home levothyroxine 75 mcg daily Plan Dispo - discharge to home with Discharge Exam Constitutional WD/WN, vitals as above Eyes PERRL, conjunctivae normal, anicteric sclerae no nystagmus Respiratory normal respiratory effort, lungs clear to auscultation Cardiovascular RRR, no murmur, no edema Gastrointestinal (Abdomen) normal bowel sounds, soft, nontender, no hepatosplenomegaly Neurologic PERRL, EOMI, accommodation nl, no face palsy, no dysarthria moves all extremities and awake Speech / Cognition: normal speech b/l lower extremities strength 5/5 Updated Medication List Medication Instructions Recorded Confirmed Type cholecalciferol (vitamin D3) 25 1,000 unit PO QAM 03/03/18 02/21/23 History mcg (1,000 unit) tablet (Vitamin D3) aspirin 81 mg tablet,delayed 81 mg PO DAILY 01/04/19 02/21/23 History release cyanocobalamin (vitamin B-12) 1,000 mcg PO DAILY 01/04/19 02/21/23 History 1,000 mcg tablet (Vitamin B-12) lactobacillus combination no.9 4 4,000 mmu cells PO DAILY 01/18/20 02/21/23 History billion cell capsule (Adult 50 Plus Probiotic) famotidine 20 mg tablet (Pepcid) 20 mg PO DAILY 12/11/22 02/21/23 History trazodone 50 mg tablet 75 mg (1.5 x 50 mg) PO HS #60 tabs 01/07/23 02/21/23 Rx levetiracetam 500 mg tablet 500 mg PO BID 30 days #60 tabs 02/15/23 02/21/23 Rx levothyroxine 75 mcg tablet 75 mcg PO DAILY #90 tabs 02/18/23 02/21/23 Rx Hospital Stay Data Consultations 02/13/23 14:37 ED Decision to Admit Stat Diagnostic Imagining Performed 02/13/23 09:44 CT head/brain wo con Stat 02/13/23 16:50 MRI Brain [MR brain wo con] Urgent 02/14/23 13:52 CTA head w con [CT angio head w con] Urgent CTA neck with con [CT angio neck with con] Urgent Pending Results Patient Have Any Pending Studies at Discharge: Yes Discharge Instructions Given to Patient (Per Discharging Provider) You were hospitilaized due to confusion/altered mental status. During your hospital stay we preformed multiple imagaing to look for strokes, masses, artery blockage in your head and neck and seizures. All of these were negative but given the presentation of the episodes and discussion with neurology, we started to treat you empiraically for partial siezures. You were started on Keppra 500mg twice a day. Continue taking this until you can follow up with Dr. Parker's office and they can adjust dosage as needed. Keep record of any further episodes that you have, time of day, how long they last, and action/symptoms during these. You were also discussed restarting a blood pressure medication to help prevent any blood clots/strokes and I recommended propanolol. However, it was never actually started during this stay and your blood pressures were normal overnight 02/14 and prior to discharge on 02/15. I recommend that you follow up with your PCP to see if they think you need long chain quiller tender high blood pressure management. We also did addtional workup for leg weakness, checking inflammatory markers (CRP and sed rate). These were negative. Vitamin B12 level was also ordered and is pending (your PCP will get this result) and we discussed over the counter supplementation if needed. Continue PT when you go to [place] It was my pleasure taking care of you! Camila Cano PA-C Total Time Total Time Spent Total Time Spent (In Minutes): 35 Supervising Physician Co-Signing Physician Notes Attending Attestation & Discharge Note: Pt seen/examined, chart reviewed, discharge care plan d/w JUAN Cano. I agree w/ the rordiguez components of her documentation. 82yo female with HTN & hypothyroidism presented with episodes of altered mental status. There were no prodromal symptoms prior to the altered mental status episodes. Underwent extensive work-up including MRI brain, CTA head/neck, and EEG. MRI brain showed "increased signal within the medial temporal lobe cortex and white matter." No acute or subacute CVA was seen. In light of her episodes of confusion, unusual behaviors during the spells, etc consideration was given to the possibility of complex partial seizures. Care was informally discussed with [facility] and keppra 500mg BID was added for the possible seizures. She tolerated this well without side effects. Although EEG was negative for seizure focus this does not exclude seizures and the MRI brain findings were very suspicious. B12 level was wnl. Sed rate/crp were both normal. She should f/u with [facility] Neurology for the above, or if in [place] (pt pierce in [place] with her ) with a neurologist in that state. discharge exam - gen - NAD, pleasant face - no droop heart - RRR, s1 s2, no murmur lungs - CTA b/l abd - soft NT ND BS+ ext - no edema, pulses 2+ b/l neuro - no tremor; strength 5/5 x 4 exts Finally, although she mentioned having weakness of her limbs, none was appreciated on her examination For chronic gait issues advised outpatient PT for gait training. Gary Aceves MD Coding Level of Care Code 10127 INP/OBS DISCH >30 MIN Diagnoses Episodic confusion R41.0 Leg weakness R29.898 Hypertension I10 Hypertension type: unspecified Palpitations R00.2 Hypothyroid E03.9
--- OUTSIDE RECORDS SUMMARY | 2023-02-17 03:14 | External Medical Summary | Continuity of Care Document ---
Author Name Unknown Organization [facility] [address] [facility] [address] [phone] Care Team Providers Care Manufacturing Maintenance Technician Name Role Phone Phan Irving Primary Care Physician [phone] [id number] Date(s): 11/21/22 - 11/21/22 [facility] [address] [phone] Encounter Diagnosis Seborrheic keratoses(Discharge Diagnosis) - 11/21/22 History of actinic keratoses(Discharge Diagnosis) - 11/21/22 Discharge Disposition: Home or Self Care Attending Physician: SHANNON Cummings Dawn M Allergies, Adverse Reactions, Alerts No Known Allergies Assessment and Plan Extracted from: Title:Office Visit Note Author:SHANNON Cummings D awn M Date:11/21/22 1.Seborrheic keratoses SEBORRHEIC KERATOSES - chronic and stable - discussed the likely benign and genetic nature of these lesions. watchful waiting. 2.History of actinic keratoses Reviewed sun protection with SPF 30 or higher applied every 80 minutes and use of sun protective clothing and hat. Call with questions or concerns. Follow up 1 year . Patient in agreement with plan Medications aspirin 81 mg oral delayed release tablet Start: 11/07/20 13:43:00 EDT, 1 tab, PO, Daily Start Date: 11/07/20 Status: Ordered levothyroxine Start: 02/13/17 13:48:00 EST, 75 mcg =, Daily Start Date: 02/13/17 Status: Ordered Lipitor 40 mg oral tablet Start: 02/13/17 13:49:00, 1 tab, PO, Daily Start Date: 02/13/17 Status: Ordered Metoprolol Tartrate 25 mg oral tablet TAKE 1 TABLET BY MOUTH EVERY DAY Start Date: 11/21/22 Status: Ordered Pepcid Start: 11/15/21 8:53:00 EDT, 20 mg =, PO, Daily Start Date: 11/15/21 Status: Ordered Probiotic Formula oral capsule Start: 11/07/20 13:43:00 EDT, 1 cap, PO, Daily Start Date: 11/07/20 Status: Ordered traZODone 50 mg oral tablet TAKE 1/2 TABLET BY MOUTH AT BEDTIME FOR 2 WEEKS AND INCREASE TO 1 TABLET AT BEDTIME IF NEEDED Start Date: 11/21/22 Status: Ordered Vitamin D3 Start: 02/13/17 13:49:00 EST, 1,000 Int_Unit =, PO, Daily Start Date: 02/13/17 Status: Ordered Mental Status 11/21/22 Barriers to Learning one year None evide nt Mandatory Health Literacy Documentation Yes Health Literacy Communication Barriers N ever Primary Language Tunisian Problem List Condition Confirmation Course Effective Dates Status H ealth Status Informant Arthritis Confirmed Active GERD (gastroesophageal reflux disease) Confirmed Active Hyperlipidemia Confirmed Active Hypothyroidism Confirmed Active Diagnosis Diagnosis Type Effective Dates Health Status Clinical Service Informant Seborrheic keratoses Discharge Diagnosis 11/21/22 History of actinic keratoses Discharge Diagnosis 11/21/22 Procedures Procedure Date Related Diagnosis Body Site Status Shave biopsy of skin 11/15/21 Comp leted Excision 11/07/20 Completed Shave biopsy 09/02/19 Completed Shave biopsy of skin 08/27/18 Comp leted Excision 1 06/2017 Completed Hysterectomy 2 Completed 1cyst removal by Dr. Chopra. [id number] Social History Social History Type Response Smoking Status Former Smoker, quit > 1 yr Sex Female Dermatology Outpatient Note * SHANNON Cummings, Niya M: PERFORM Event Display: Dermatology Outpt Note Authored Date: [id number] Chief Complaint Annual skin check. Hx AK. NO concerns. History of Present Illness Bonnie is a82 year old patient presenting today with a chief complaint ofAnnual skin check. Hx AK. NO concerns.She denies itching, bleeding, oozing, crusting or evolving lesions. CNH on right ear resolved after shave removal and ILK. History of AK. Secondary complaint: skin check Patient has NO past personal history of skin cancer: Family history: Daughter with atypical nevi ? melanoma Patient uses sunscreen / hat. Patient reports history of blistering sunburns but no tanning beds. Moved from [place] to [place] to be closer to daughter. Plays golf. Retired nephrology nurse - dialysis. Tyshawn Review of Systems Denies fever, chills, sweats, night sweats, weight loss, headache, visual change, stomach upset diarrhea and joint pain. Physical Exam Constitutional: Generally well appearing, well developed. Appears stated age. Eyes: Conjunctivae and lids without noted inflammation, lesion, mass, deformity or drainage. Cardiovascular: Swelling of the lower extremities not noted. Extremities pink, warm and dry. Extremities: Digits and nails without clubbing, cyanosis, petechiae, signs of ischemia, infectionor inflammation. Neurological / Psychiatric: Oriented to person, place and time. Appropriate mood and affect. No notable depression, anxiety or agitation. Complete skin exam was performed today including head, neck, chest, axillae, abdomen, groin, buttocks, back, bilateral upper and bilateral lower extremities. Palpation of the scalp, inspection of hair of scalp, eyebrows and finger and toenails was performed. 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 RIGHT ARM, LEFT LATERAL LOWER LEGhyperkeratotic plaques and papules consistent with seborrheic keratoses Assessment/Plan 1.Seborrheic keratoses SEBORRHEIC KERATOSES - chronic and stable - discussed the likely benign and genetic nature of theselesions. watchful waiting. 2.History of actinic keratoses Reviewed sun protection with SPF 30 or higher applied every 80 minutes and use of sun protective clothing and hat. Call with questions or concerns. Follow up 1 year . Patient in agreement with plan Problem List/Past Medical History Ongoing Arthritis GERD (gastroesophageal reflux disease) Hyperlipidemia Hypothyroidism Procedure/Surgical History Shave biopsy of skin (11/15/2021)Excision (11/07/2020)Shave biopsy (09/02/2019)Shave biopsy of skin (08/27/2018)Excision (06/2017)Hysterectomy Medications aspirin(aspirin 81 mg oral delayed release tablet), 81 mg= 1 tab, PO, Daily atorvastatin(Lipitor 40 mg oral tablet), 40 mg= 1 tab, PO, Daily bifidobacterium-lactobacillus(Probiotic Formula oral capsule), 1 cap, PO, Daily cholecalciferol(Vitamin D3), 1000 Int_Unit, PO, Daily famotidine(Pepcid), 20 mg, PO, Daily levothyroxine, 75 mcg, Daily metoprolol(Metoprolol Tartrate 25 mg oral tablet) traZODone(traZODone 50 mg oral tablet) Allergies NKA Social History Smoking Status Former Smoker, quit > 1 yr Recommendations Health Maintenance Pending(in the next year) OverDue Adult Influenza Vaccine due10/05/22and every 1year Due Adult COVID-19 Vaccination due11/21/22Unknown Frequency Adult Tdap/Td Vaccine due11/21/22Unknown Frequency Body Mass Index due11/21/22Unknown Frequency Medicare Annual Wellness Visit due11/21/22and every 1year Osteoporosis Screening due11/21/22One-time only Pneumococcal Vaccine Older Adults due11/21/22One-time only Shingles Vaccine due11/21/22One-time only Satisfied(in the past 1 year) There are no satisfied recommendations within the defined date range Electronic Signature on File Electronically Reviewed/Signed by: JUAN Stiles Author Signature Dt/Tm:11/21/2022 09:12 AM Department of Family Medicine Department of Dermatology DMS Patient Care team information Care Team Personnel Name: MD Irving Paul Position: Referring DIRECT Member Role: Primary Care Provider Address: Address: [address] [place] [address] Care Team Related Persons Name: TYSHAWN GUTHRIE Address: home [address] [place] [address] [address] [place], [place] [id number]
--- NOTE | 2023-02-19 08:35 | Coding Query ---
CODING QUERY To promote full compliance with coding requirements relating to patient care, provider participation is requested in all cases of exceptional children teacher uncertainty. Please assist us with the question(s) below: Coding Question(s): There is documentation of possible CVA and documentation of, "During your hospital stay we preformed multiple imagaing to look for strokes, masses, artery blockage in your head and neck and seizures. 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 It is not clear if the possible CVA was Ruled-Out, or still possible. Please specify below, in your clinical opinion, regarding possible CVA: ( ) Possible CVA ( x ) CVA was Ruled-Out ( ) CVA - Other - Please Specify Physician's Response(s): Thank you Cherry Buenrostro Principal Diagnosis: "that condition established after study, to be chiefly responsible for occasioning the admission of the patient to the hospital for care." Co-Existing Principal Diagnosis: "when two or more diagnoses equally meet the criteria for principal diagnosis as determined by the circumstances of admission, diagnostic work up, and/or therapy provided, and the Alphabetic Index, Tabular List, or another coding guideline does not provide sequencing direction, any one of the diagnoses may be sequenced first." "When the physician has documented what appears to be a current diagnosis in the body of the record, but has not included the diagnosis in the final diagnostic statement, the physician should be asked whether the diagnosis should be added." (Source Coding [facility] 2 QTR90. p3-4) DYLAN
== END 2023-02-15 12:29 | disposition home or self-care (01) | DRG 101 ==
LOC: ED 08:38 → SUATTDRO 16:59 → 2W 16:59